=== PATIENT | female | born 1960 | race African-American/Black ===

== ENCOUNTER 2016-12-20 21:36 | Emergency (ER) | payer OTHER, MEDICAID ==
[~2016-12-20] VITALS: Ht 154.9 cm; Wt 70.3 kg
[~2016-12-20 21:36] MED LIST: ALPR0.5T; ASPI81CH43; HYDR-1421 OR; insulin 70/30 SC
[2016-12-20 23:35] LABS: Basophils # (auto) 0 uL; Basophils % (auto) 0.2 % (0.0-2.0); CONDITION AutoValidated; Eosinophils # (auto) 0 uL; Eosinophils % (auto) 0.3 % (0.0-7.0); Hematocrit 43.5 % (36.0-46.0); Hemoglobin 14.4 g/dL (12.2-16.2); Lymphocytes # (auto) 1.3 uL; Lymphocytes % (auto) 12.7 % (10.0-50.0); Mean Corpuscular Hemoglobin 27.8 pg (28.0-32.0); Mean Corpuscular Volume 84.3 fL (80.0-100.0); Mean Platelet Volume 9.3 fL (7.4-10.4); Monocytes # (auto) 0.3 uL; Monocytes % (auto) 3.3 % (0.0-12.0); Neutrophils # (auto) 8.7 uL; Neutrophils % (auto) 83.5 % (37.0-80.0); Platelet Count (auto) 254 10^3/uL (140-450); Red Cell Distribution Width 12.3 % (11.6-16.0); White Blood Cell 10.4 10^3/uL (4.4-10.8)
[2016-12-20 23:56] LABS: Albumin 3.7 g/dL (3.4-5.0); Anion Gap 11 (5-15); Aspartate Aminotransferase 20 U/L (15-37); BUN/Creatinine Ratio 13.6; Blood Urea Nitrogen 11 mg/dL (7-18); Carbon Dioxide 23 mmol/L (21-32); Chloride 106 mmol/L (98-107); GFR African American 94 mL/min; GFR Non-African American 77 mL/min; Glucose 341 mg/dL (74-106); Potassium 3.8 mmol/L (3.5-5.1); Sodium 140 mmol/L (136-145)
[2016-12-20 23:58] LABS: Alkaline Phosphatase 139 U/L (45-117); Bilirubin, Total 0.4 mg/dL (0.2-1.0); Total Protein 7.8 g/dL (6.4-8.2)
[2016-12-21] MEDS ORDERED: MECLIZINE HCL 25 MG TAB PO ONE (00:30)
[2016-12-21 01:49] LABS: B-Type Natriuretic Peptide 57.49 pg/mL (0-100); Temperature: 23.8 C (20.0-25.0)
[2016-12-21 03:03] VITALS: BP 99/41
== END 2016-12-21 04:52 | disposition home or self-care (01) ==
LOC: EDBD 21:36 → ER 21:49
DX: E11.9 Type 2 diabetes mellitus without complications (principal); E42 Marasmic kwashiorkor; I11.0 Hypertensive heart disease with heart failure; I50.9 Heart failure, unspecified; I25.10 Atherosclerotic heart disease of native coronary artery without angina pectoris; N83.209 Unspecified ovarian cyst, unspecified side; Z95.1 Presence of aortocoronary bypass graft
CPT/HCPCS: 36415; 71010; 80053; 83880; 84484; 85025; 85379; 93005; 94761; 99285; J8597

== ENCOUNTER 2017-11-20 18:17 | Emergency (ER) | payer OTHER, MEDICAID ==
[~2017-11-20] VITALS: Ht 157.5 cm; Wt 54.4 kg
[2017-11-20 19:44] LABS: Urine Bacteria FEW /hpf (None Seen); Urine Blood Negative /uL (Negative); Urine WBC <1 /hpf (0 - 5)
[2017-11-20 19:51] LABS: Basophils # (auto) 0 uL; Basophils % (auto) 0.6 % (0.0-2.0); Eosinophils # (auto) 0.1 uL; Eosinophils % (auto) 1.3 % (0.0-7.0); Hematocrit 42.8 % (36.0-46.0); Hemoglobin 14.4 g/dL (12.2-16.2); Lymphocytes # (auto) 2.3 uL; Lymphocytes % (auto) 34.3 % (10.0-50.0); Mean Corpuscular Hemoglobin 28.4 pg (28.0-32.0); Mean Corpuscular Hgb Conc. 33.7 g/dL (32.0-36.0); Mean Corpuscular Volume 84.2 fL (80.0-100.0); Monocytes # (auto) 0.5 uL; Monocytes % (auto) 7.9 % (0.0-12.0); Neutrophils # (auto) 3.8 uL; Neutrophils % (auto) 55.9 % (37.0-80.0); Nucleated Red Blood Cells % 0.1 %; Platelet Count (auto) 223 10^3/uL (140-450); Red Blood Cells 5.08 10^6/uL (4.0-5.20); Red Cell Distribution Width 12.6 % (11.8-14.3); White Blood Cell 6.7 10^3/uL (4.4-10.8)
[2017-11-20 19:57] LABS: Albumin 3.8 g/dL (3.4-5.0); BUN/Creatinine Ratio 19.7; Bilirubin, Total 0.2 mg/dL (0.2-1.0); Calcium 10.1 mg/dL (8.5-10.1); Total Protein 7.8 g/dL (6.4-8.2)
[2017-11-21] MEDS ORDERED: InsuLIN REG 1unit/0.01ml Soln (100units/ml) IV ONE (04:30)
[2017-11-21] MEDS ORDERED: SODIUM CHLORIDE 0.9% 1,000 ML IV ONE (04:30)
[2017-11-21 04:46] VITALS: BP 102/64
[2017-11-21] MEDS ORDERED: ONDANSETRON HCL 4 MG/2 ML VIAL IV ONE (05:15)
== END 2017-11-21 06:10 | disposition home or self-care (01) ==
LOC: ER 18:17
DX: K29.70 Gastritis, unspecified, without bleeding (principal); E11.9 Type 2 diabetes mellitus without complications; I11.0 Hypertensive heart disease with heart failure; I50.9 Heart failure, unspecified; N83.209 Unspecified ovarian cyst, unspecified side; Z86.73 Personal history of transient ischemic attack (TIA), and cerebral infarction without residual deficits; Z95.1 Presence of aortocoronary bypass graft; Z88.6 Allergy status to analgesic agent; Z88.1 Allergy status to other antibiotic agents; Z88.8 Allergy status to other drugs, medicaments and biological substances; Z79.4 Long term (current) use of insulin
CPT/HCPCS: 36415; 80053; 81001; 82962; 85025; 99284; J1815; J2405

== ENCOUNTER 2019-02-13 20:48 | Emergency (ER) | payer OTHER, MEDICAID ==
[~2019-02-13] VITALS: Ht 157.5 cm; Wt 77.1 kg
[2019-02-13 22:28] LABS: Urine Bacteria FEW /hpf (None Seen); Urine Blood TRACE /uL (Negative); Urine Mucus FEW (None Seen); Urine Specific Gravity 1.019 (1.001-1.035); Urine WBC 67 /hpf (0 - 5)
[2019-02-13 23:09] LABS: Basophils # (auto) 0 uL; Basophils % (auto) 0.4 % (0.0-2.0); Eosinophils # (auto) 0.1 uL; Eosinophils % (auto) 1.8 % (0.0-7.0); Hemoglobin 13.8 g/dL (12.2-16.2); Lymphocytes # (auto) 2.4 uL; Lymphocytes % (auto) 34.1 % (10.0-50.0); Mean Corpuscular Hemoglobin 28.3 pg (28.0-32.0); Mean Corpuscular Hgb Conc. 33.7 g/dL (32.0-36.0); Mean Corpuscular Volume 83.9 fL (80.0-100.0); Monocytes # (auto) 0.5 uL; Monocytes % (auto) 7.8 % (0.0-12.0); Neutrophils # (auto) 3.9 uL; Neutrophils % (auto) 55.9 % (37.0-80.0); Platelet Count (auto) 199 10^3/uL (140-450); Red Blood Cells 4.89 10^6/uL (4.0-5.20); Red Cell Distribution Width 12.6 % (11.8-14.3)
[2019-02-13 23:33] LABS: Albumin 3.6 g/dL (3.4-5.0); Calcium 9.2 mg/dL (8.5-10.1); Potassium 3.8 mmol/L (3.5-5.1)
[2019-02-13 23:37] LABS: BUN/Creatinine Ratio 22.2
[2019-02-13 23:39] LABS: Bilirubin, Total 0.3 mg/dL (0.2-1.0); Total Protein 7.2 g/dL (6.4-8.2)
[2019-02-14] MEDS ORDERED: cefTRIAXone 1GM/50ML D5W 50 ML IV ONE (07:45)
[2019-02-14 09:44] VITALS: BP 116/66
== END 2019-02-14 10:04 | disposition home or self-care (01) ==
LOC: ER 20:48
DX: N39.0 Urinary tract infection, site not specified (principal); E11.65 Type 2 diabetes mellitus with hyperglycemia; I25.10 Atherosclerotic heart disease of native coronary artery without angina pectoris; I11.0 Hypertensive heart disease with heart failure; I50.9 Heart failure, unspecified; Z95.1 Presence of aortocoronary bypass graft; Z79.82 Long term (current) use of aspirin; Z79.4 Long term (current) use of insulin; Z79.899 Other long term (current) drug therapy; Z88.1 Allergy status to other antibiotic agents; Z88.5 Allergy status to narcotic agent; Z88.8 Allergy status to other drugs, medicaments and biological substances
CPT/HCPCS: 36415; 80053; 81001; 82962; 85025; 96365; 99283; J0696

== ENCOUNTER 2019-04-10 09:07 | Emergency (ER) | payer OTHER, MEDICAID ==
[~2019-04-10] VITALS: Ht 160 cm; Wt 81.6 kg
[2019-04-10 09:54] LABS: Basophils # (auto) 0.1 uL; Basophils % (auto) 0.6 % (0.0-2.0); Eosinophils # (auto) 0.1 uL; Eosinophils % (auto) 0.8 % (0.0-7.0); Hematocrit 42.5 % (36.0-46.0); Hemoglobin 14.2 g/dL (12.2-16.2); Lymphocytes # (auto) 1.4 uL; Lymphocytes % (auto) 13.7 % (10.0-50.0); Mean Corpuscular Hemoglobin 28.7 pg (28.0-32.0); Mean Corpuscular Hgb Conc. 33.4 g/dL (32.0-36.0); Monocytes # (auto) 0.6 uL; Monocytes % (auto) 5.8 % (0.0-12.0); Neutrophils # (auto) 8.1 uL; Neutrophils % (auto) 79.1 % (37.0-80.0); Nucleated Red Blood Cells % 0.1 %; Platelet Count (auto) 205 10^3/uL (140-450); Red Blood Cells 4.94 10^6/uL (4.0-5.20); White Blood Cell 10.3 10^3/uL (4.4-10.8)
[2019-04-10 10:21] LABS: Alanine Aminotransferase 25 U/L (13-56); Alkaline Phosphatase 131 U/L (45-117); Anion Gap 8 (5-15); Aspartate Aminotransferase 24 U/L (15-37); BUN/Creatinine Ratio 19.5; Blood Urea Nitrogen 17 mg/dL (7-18); Carbon Dioxide 20 mmol/L (21-32); Chloride 109 mmol/L (98-107); GFR African American 85 mL/min; GFR Non-African American 71 mL/min; Glucose 396 mg/dL (74-106); Potassium 4.4 mmol/L (3.5-5.1); Sodium 137 mmol/L (136-145)
[2019-04-10 10:22] LABS: Albumin 3.4 g/dL (3.4-5.0); Bilirubin, Total 0.6 mg/dL (0.2-1.0); Calcium 9.3 mg/dL (8.5-10.1); Total Protein 7.6 g/dL (6.4-8.2)
[2019-04-10] MEDS ORDERED: SODIUM CHLORIDE 0.9% 1,000 ML IVB ONE (12:44)
[2019-04-10 14:52] LABS: Urine Bacteria NONE SEEN /hpf (None Seen); Urine Blood 1+ /uL (Negative); Urine Specific Gravity 1.027 (1.001-1.035); Urine WBC 5 /hpf (0 - 5)
[2019-04-10] MEDS ORDERED: INSULIN LISPRO (HUMAN) 100 UNITS/ML ML SC ONE (16:30)
[2019-04-10 16:58] VITALS: BP 112/62
== END 2019-04-10 17:12 | disposition home or self-care (01) ==
LOC: EDBD 09:07 → ER 09:07
DX: R07.89 Other chest pain (principal); E11.65 Type 2 diabetes mellitus with hyperglycemia; F41.9 Anxiety disorder, unspecified; E11.9 Type 2 diabetes mellitus without complications; I11.0 Hypertensive heart disease with heart failure; I50.9 Heart failure, unspecified; H81.10 Benign paroxysmal vertigo, unspecified ear; Z86.73 Personal history of transient ischemic attack (TIA), and cerebral infarction without residual deficits; Z95.1 Presence of aortocoronary bypass graft; Z88.1 Allergy status to other antibiotic agents; Z88.6 Allergy status to analgesic agent; Z90.49 Acquired absence of other specified parts of digestive tract
CPT/HCPCS: 36415; 71045; 80053; 81001; 82962; 83735; 84443; 84484; 85025; 93005; 96360; 96372; 99284; J1815

== ENCOUNTER 2023-02-11 01:18 | Inpatient (IN) | payer OTHER, MEDICAID ==
[~2023-02-11] VITALS: Ht 162.6 cm; Wt 62.4 kg
[2023-02-11] MEDS ORDERED: ACCU-CHEK COMFORT CURVE STRIP VI ONE (01:45)
[2023-02-11 02:00] VITALS: PULSE 102; PULSE 109; RESP 20; O2SAT 99
[2023-02-11] MEDS ORDERED: InsuLIN REG 1unit/0.01ml Soln (100units/ml) IV ONE (02:00)
[2023-02-11] MEDS ORDERED: SODIUM CHLORIDE 0.9% 1,000 ML IV ONE ×3 (02:00→11:15)
[2023-02-11 02:06] LABS: Basophils # (auto) 0 10 ^3/uL (0-0.2); Basophils % (auto) 0.4 % (0.0-2.0); Eosinophils # (auto) 0 10 ^3/uL (0-0.8); Eosinophils % (auto) 0.5 % (0.0-7.0); Hemoglobin 13.6 g/dL (12.2-16.2); Lymphocytes # (auto) 1.6 10 ^3/uL (0.4-5.4); Lymphocytes % (auto) 20.5 % (10.0-50.0); Mean Corpuscular Hemoglobin 28.2 pg (28.0-32.0); Mean Corpuscular Hgb Conc. 33.1 g/dL (32.0-36.0); Mean Corpuscular Volume 85.3 fL (80.0-100.0); Monocytes # (auto) 0.5 10 ^3/uL (0-1.3); Monocytes % (auto) 6.2 % (0.0-12.0); Neutrophils # (auto) 5.8 10 ^3/uL (1.6-8.6); Neutrophils % (auto) 72.4 % (37.0-80.0); Red Blood Cells 4.81 10^6/uL (4.0-5.20); Red Cell Distribution Width 12.4 % (11.8-14.3); White Blood Cell 7.9 10^3/uL (4.4-10.8)
[2023-02-11] MEDS ORDERED: ONDANSETRON ODT 4 MG TAB PO ONE (02:15)
[2023-02-11 02:23] LABS: Albumin 3.5 g/dL (3.4-5.0); Calcium 9.8 mg/dL (8.5-10.1); Potassium 3.7 mmol/L (3.5-5.1)
[2023-02-11 02:27] LABS: Bilirubin, Total 0.4 mg/dL (0.2-1.0); Total Protein 7.9 g/dL (6.4-8.2)
[2023-02-11 02:55] LABS: BUN/Creatinine Ratio 23.5 (10.0-20.0)
[2023-02-11 02:55] LABS: COVID19 ANTIGEN SOFIA FIA NEGATIVE (NEGATIVE)
[2023-02-11 04:24] LABS: Urine Bacteria NONE SEEN /hpf (None Seen); Urine Blood Negative /uL (Negative); Urine Clarity HAZY (Clear); Urine Color Colorless (Yellow); Urine Protein, UAD 1+ (Negative); Urine Specific Gravity 1.023 (1.001-1.035); Urine Urobilinogen Normal (Negative); Urine WBC 122 /hpf (0 - 5); Urine WBC Clumps PRESENT /hpf (None Seen); Urine pH 5.5 (5.0-8.0)
[2023-02-11 04:28] LABS: Alcohol, Urine < 3.0 mg/dL (0-10); Amphetamine Screen, Urine NEGATIVE (NEGATIVE); Barbiturate Scree,Urine NEGATIVE (NEGATIVE); Benzodiazephine Screen, Urine NEGATIVE (NEGATIVE); Cannabinoid Screen, Urine NEGATIVE (NEGATIVE); Cocaine Screen, Urine NEGATIVE (NEGATIVE); Opiate Scree,Urine NEGATIVE (NEGATIVE); Phencyclidine Screen, Urine NEGATIVE (NEGATIVE)
[2023-02-11] MEDS ORDERED: PIPERACILLIN-TAZOB 3.375GM 100 ML IV ONE (05:15)
[2023-02-11] MEDS ORDERED: ACETAMINOPHEN 325 MG TAB PO PRN (05:45)
[2023-02-11] MEDS ORDERED: DEXTROSE (50%) 50ML SYRG IV PRN ×2 (05:45→11:15)
[2023-02-11] MEDS ORDERED: ALBUMIN 25% 100 ML IV ONE (05:45)
[2023-02-11] MEDS ORDERED: ONDANSETRON HCL 4 MG/2 ML VIAL IV PRN (05:45)
[2023-02-11] MEDS: MIDODRINE HCL 10 MG TAB PO SCH ×2 (06:37→23:44)
[2023-02-11] MEDS ORDERED: InsuLIN REG 1unit/0.01ml Soln (100units/ml) SC SCH (08:00)
[2023-02-11] MEDS ORDERED: ACCU-CHEK COMFORT CURVE STRIP VI SCH (08:00)
[2023-02-11 08:50] VITALS: PULSE 101; RESP 20; O2SAT 99
[2023-02-11] MEDS: APIXABAN 5 MG TAB PO SCH ×2 (09:54→23:44)
[2023-02-11] MEDS: PANTOPRAZOLE 40 MG TAB PO SCH (09:54)
[2023-02-11] MEDS: cefTRIAXone 1GM/50ML D5W 50 ML IV SCH (09:54)
[2023-02-11] MEDS ORDERED: ENOXAPARIN SOD 40 MG/0.4 ML SYRINGE SC SCH (10:00)
[2023-02-11] MEDS: ACCU-CHEK COMFORT CURVE STRIP VI SCH ×4 (12:39→23:45)
[2023-02-11] MEDS: InsuLIN REG 1unit/0.01ml Soln (100units/ml) SC SCH ×3 (12:42→20:40)
[2023-02-11 16:06] LABS: Cholesterol 164 mg/dL (< 200)
[2023-02-11 16:09] LABS: HDL Cholesterol 37 mg/dL (40-59); LDL Cholesterol 110 mg/dL (< 100); Triglycerides 237 mg/dL (< 150)
[2023-02-11 16:51] LABS: Free T3 2.53 pg/mL (2.3-4.2); Free T4 (Free Thyroxine) 1.3 ng/dL (0.89-1.76)
[2023-02-11 21:58] VITALS: PULSE 84; RESP 18; O2SAT 98
[2023-02-11 22:00] VITALS: BP 90/48; PULSE 84; RESP 18; TEMP 98.1; O2SAT 98
[2023-02-11] MEDS ORDERED: MIDO10TA10 PO (22:52)
[2023-02-11] MEDS ORDERED: ATOR20TA50 PO (22:52)
[2023-02-11] MEDS ORDERED: MAX5OPS EACHEYE (22:52)
[2023-02-11] MEDS ORDERED: APIX5TAB PO (22:52)
[2023-02-11] MEDS ORDERED: INSLANTI SC (22:52)
[2023-02-11] MEDS: ATORVASTATIN 20 MG TAB PO SCH (23:45)
[2023-02-12] VITALS (7 sets, daily range): BP systolic 90–113; BP diastolic 44–70; PULSE 71–90; RESP 16–20; TEMP 97.5–99.1; O2SAT 98–100
[2023-02-12] MEDS: InsuLIN REG 1unit/0.01ml Soln (100units/ml) SC SCH ×6 (00:29→21:55)
[2023-02-12] MEDS: ACCU-CHEK COMFORT CURVE STRIP VI SCH ×5 (04:46→20:56)
[2023-02-12 06:43] LABS: Basophils # (auto) 0 10 ^3/uL (0-0.2); Basophils % (auto) 0.5 % (0.0-2.0); Eosinophils # (auto) 0.1 10 ^3/uL (0-0.8); Eosinophils % (auto) 1.5 % (0.0-7.0); Hematocrit 37.5 % (36.0-46.0); Hemoglobin 12.3 g/dL (12.2-16.2); Lymphocytes % (auto) 32.1 % (10.0-50.0); Mean Corpuscular Hemoglobin 27.5 pg (28.0-32.0); Mean Corpuscular Hgb Conc. 32.8 g/dL (32.0-36.0); Mean Corpuscular Volume 83.9 fL (80.0-100.0); Monocytes # (auto) 0.6 10 ^3/uL (0-1.3); Monocytes % (auto) 9.5 % (0.0-12.0); Neutrophils # (auto) 3.5 10 ^3/uL (1.6-8.6); Neutrophils % (auto) 56.4 % (37.0-80.0); Red Blood Cells 4.47 10^6/uL (4.0-5.20); Red Cell Distribution Width 12.4 % (11.8-14.3); White Blood Cell 6.2 10^3/uL (4.4-10.8)
[2023-02-12 06:55] LABS: BUN/Creatinine Ratio 21.6 (10.0-20.0); Calcium 9.1 mg/dL (8.5-10.1)
[2023-02-12] MEDS: cefTRIAXone 1GM/50ML D5W 50 ML IV SCH (10:02)
[2023-02-12] MEDS: APIXABAN 5 MG TAB PO SCH ×2 (10:03→21:06)
[2023-02-12] MEDS: PANTOPRAZOLE 40 MG TAB PO SCH (10:03)
[2023-02-12] MEDS: MIDODRINE HCL 10 MG TAB PO SCH ×2 (10:03→21:06)
[2023-02-12] MEDS ORDERED: POTASSIUM EFFERVESENT TAB 25 MEQ PO ONE (14:45)
[2023-02-12] MEDS: ATORVASTATIN 20 MG TAB PO SCH (21:06)
[2023-02-13] VITALS (7 sets, daily range): BP systolic 78–98; BP diastolic 40–65; PULSE 66–110; RESP 16–18; TEMP 97.9–99; O2SAT 93–98
[2023-02-13] MEDS: ACCU-CHEK COMFORT CURVE STRIP VI SCH ×7 (00:27→23:36)
[2023-02-13] MEDS: InsuLIN REG 1unit/0.01ml Soln (100units/ml) SC SCH ×7 (06:08→23:53)
[2023-02-13] MEDS: cefTRIAXone 1GM/50ML D5W 50 ML IV SCH (08:29)
[2023-02-13] MEDS: PANTOPRAZOLE 40 MG TAB PO SCH (09:50)
[2023-02-13] MEDS: MIDODRINE HCL 10 MG TAB PO SCH ×2 (09:50→21:17)
[2023-02-13] MEDS: APIXABAN 5 MG TAB PO SCH ×2 (09:50→21:16)
[2023-02-13] MEDS ORDERED: INSULIN LANTUS (GLARGINE) 1 /0.01ml (100units/ml) SC ONE (10:30)
[2023-02-13] MEDS: INSULIN LANTUS (GLARGINE) 1 /0.01ml (100units/ml) SC SCH ×2 (10:45→21:29)
[2023-02-13] MEDS: ATORVASTATIN 20 MG TAB PO SCH (21:17)
[2023-02-13] MEDS ORDERED: INSULIN LANTUS (GLARGINE) 1 /0.01ml (100units/ml) SC SCH (22:00)
[2023-02-14] VITALS (7 sets, daily range): BP systolic 72–97; BP diastolic 38–56; PULSE 70–110; RESP 15–17; TEMP 36.7; O2SAT 97–99
[2023-02-14] MEDS: InsuLIN REG 1unit/0.01ml Soln (100units/ml) SC SCH ×3 (04:00→12:34)
[2023-02-14] MEDS: ACCU-CHEK COMFORT CURVE STRIP VI SCH ×3 (04:10→12:34)
[2023-02-14] MEDS ORDERED: MIDODRINE HCL 10 MG TAB PO SCH (06:00)
[2023-02-14] MEDS: cefTRIAXone 1GM/50ML D5W 50 ML IV SCH (08:25)
[2023-02-14] MEDS ORDERED: CEPH500C PO (09:19)
[2023-02-14] MEDS ORDERED: INSLANTI SC (09:19)
[2023-02-14] MEDS: APIXABAN 5 MG TAB PO SCH (10:00)
[2023-02-14] MEDS: PANTOPRAZOLE 40 MG TAB PO SCH (10:02)
== END 2023-02-14 14:00 | disposition home or self-care (01) | DRG 871 ==
LOC: EDBD 01:18 → ER 01:20 → OVERFLOW 05:45 → WEST WING 20:52
PROVIDERS: ADMIT Family Medicine; ATTEND Family Medicine
DX: A41.9 Sepsis, unspecified organism (principal); E11.10 Type 2 diabetes mellitus with ketoacidosis without coma; R65.21 Severe sepsis with septic shock; N39.0 Urinary tract infection, site not specified; E86.0 Dehydration; I95.9 Hypotension, unspecified; I50.9 Heart failure, unspecified; E66.9 Obesity, unspecified; E78.00 Pure hypercholesterolemia, unspecified; E87.5 Hyperkalemia; I11.0 Hypertensive heart disease with heart failure; I48.91 Unspecified atrial fibrillation; F32.A Depression, unspecified; F41.9 Anxiety disorder, unspecified; I25.10 Atherosclerotic heart disease of native coronary artery without angina pectoris; E11.40 Type 2 diabetes mellitus with diabetic neuropathy, unspecified; E11.21 Type 2 diabetes mellitus with diabetic nephropathy; E05.90 Thyrotoxicosis, unspecified without thyrotoxic crisis or storm; R79.89 Other specified abnormal findings of blood chemistry; I95.89 Other hypotension; Z20.822 Contact with and (suspected) exposure to COVID-19; Z79.01 Long term (current) use of anticoagulants; Z82.49 Family history of ischemic heart disease and other diseases of the circulatory system; Z83.3 Family history of diabetes mellitus; Z86.718 Personal history of other venous thrombosis and embolism; Z95.1 Presence of aortocoronary bypass graft; Z88.8 Allergy status to other drugs, medicaments and biological substances; Z88.1 Allergy status to other antibiotic agents; Z88.5 Allergy status to narcotic agent; Z90.49 Acquired absence of other specified parts of digestive tract
CPT/HCPCS: 36415; 71045; 80048; 80053; 80061; 80307; 81001; 82533; 82962; 83036; 83880; 84439; 84443; 84481; 84484; 85025; 87040; 87086; 87426; 93005; 93306; 96361; 96365; 96367; 96372; 96375; G0378; J0696; J1815; J2543; P9047; Q0162

== ENCOUNTER 2023-06-09 16:31 | Inpatient (IN) | payer OTHER, MEDICAID ==
[~2023-06-09] VITALS: Ht 157.5 cm; Wt 59.1 kg
[~2023-06-09 16:31] MED LIST changes: -ALPR0.5T; +APIX5TAB PO; -ASPI81CH43; +ATOR20TA50 PO; +CEPH500C PO; -HYDR-1421 OR; +INSLANTI SC; +MAX5OPS EACHEYE; +MIDO10TA10 PO; -insulin 70/30 SC
[2023-06-09] MEDS ORDERED: SODIUM CHLORIDE 0.9% 1,000 ML IV ONE (18:00)
[2023-06-09 18:35] LABS: Basophils # (auto) 0.1 10 ^3/uL (0-0.2); Basophils % (auto) 0.3 % (0.0-2.0); Eosinophils # (auto) 0 10 ^3/uL (0-0.8); Eosinophils % (auto) 0.1 % (0.0-7.0); Hematocrit 39.1 % (36.0-46.0); Hemoglobin 12.7 g/dL (12.2-16.2); Lymphocytes # (auto) 0.8 10 ^3/uL (0.4-5.4); Lymphocytes % (auto) 4.1 % (10.0-50.0); Mean Corpuscular Hgb Conc. 32.4 g/dL (32.0-36.0); Mean Corpuscular Volume 83.4 fL (80.0-100.0); Monocytes # (auto) 1.7 10 ^3/uL (0-1.3); Monocytes % (auto) 8.7 % (0.0-12.0); Neutrophils # (auto) 17.3 10 ^3/uL (1.6-8.6); Neutrophils % (auto) 86.8 % (37.0-80.0); Red Blood Cells 4.69 10^6/uL (4.0-5.20); Red Cell Distribution Width 12.2 % (11.8-14.3); White Blood Cell 19.9 10^3/uL (4.4-10.8)
[2023-06-09 18:54] LABS: INR 1.09 (0.9-1.15); Partial Thromboplastin Time 28.2 SEC (24.5-34.5); Prothrombin Time 11.4 sec (9.3-11.8)
[2023-06-09 19:08] LABS: Alanine Aminotransferase 13 U/L (7-40); Albumin 3.8 g/dL (3.2-4.8); Alkaline Phosphatase 134 U/L (46-116); Anion Gap 11 (5-15); Aspartate Aminotransferase 19 U/L (13-40); BUN/Creatinine Ratio 19.4 (10.0-20.0); Bilirubin, Total 0.4 mg/dL (0.2-1.0); Blood Urea Nitrogen 27 mg/dL (9-23); Calcium 9.3 mg/dL (8.7-10.4); Carbon Dioxide 21 mmol/L (20-30); Chloride 96 mmol/L (98-107); Potassium 4.7 mmol/L (3.5-5.1); Sodium 128 mmol/L (136-145); Total Protein 6.8 g/dL (5.7-8.2)
[2023-06-09 19:15] LABS: Glucose 635 mg/dL (74-106)
[2023-06-09] MEDS ORDERED: cefTRIAXone 1GM/50ML D5W 50 ML IV ONE (20:45)
[2023-06-09] MEDS ORDERED: DEXTROSE (50%) 50ML SYRG IV PRN (20:45)
[2023-06-09] MEDS ORDERED: NITROGLYCERIN 0.4 MG SL TAB SL PRN (20:45)
[2023-06-09] MEDS ORDERED: TEMAZEPAM 15 MG CAP PO PRN (20:45)
[2023-06-09] MEDS ORDERED: ONDANSETRON HCL 4 MG/2 ML VIAL IV PRN (20:45)
[2023-06-09] MEDS ORDERED: ALBUMIN 5% 250 ML IV ONE (20:45)
[2023-06-09 21:00] VITALS: PULSE 107; RESP 14; O2SAT 99
[2023-06-09] MEDS ORDERED: InsuLIN REG 1unit/0.01ml Soln (100units/ml) IV ONE (21:00)
[2023-06-09] MEDS: MIDODRINE HCL 10 MG TAB PO SCH (21:28)
[2023-06-09] MEDS: SODIUM CHLORIDE 0.9% 1,000 ML IV SCH (21:56)
[2023-06-09] MEDS: ATORVASTATIN 20 MG TAB PO SCH (22:12)
[2023-06-09] MEDS: APIXABAN 5 MG TAB PO SCH (22:12)
[2023-06-10 01:27] LABS: COVID19 ANTIGEN SOFIA FIA NEGATIVE (NEGATIVE); Rapid Influenza A Negative (Negative); Rapid Influenza B Negative (Negative)
[2023-06-10] MEDS: ACCU-CHEK COMFORT CURVE STRIP VI SCH ×7 (01:28→23:05)
[2023-06-10] MEDS: InsuLIN REG 1unit/0.01ml Soln (100units/ml) SC SCH ×8 (01:28→23:05)
[2023-06-10 02:32] VITALS: PULSE 94; RESP 19; O2SAT 95
[2023-06-10 03:36] LABS: Urine Bacteria NONE SEEN /hpf (None Seen); Urine Blood 2+ /uL (Negative); Urine Clarity CLOUDY (Clear); Urine Color Yellow (Yellow); Urine Protein, UAD 1+ (Negative); Urine Urobilinogen Normal (Negative); Urine WBC 3850 /hpf (0 - 5); Urine WBC Clumps PRESENT /hpf (None Seen); Urine pH 5.5 (5.0-8.0)
[2023-06-10 03:38] LABS: Urine Specific Gravity 1.025 (1.001-1.035)
[2023-06-10] MEDS ORDERED: SODIUM CHLORIDE 0.9% 1,000 ML IV ONE ×2 (04:30→15:00)
[2023-06-10 06:15] LABS: Albumin 3.9 g/dL (3.2-4.8); Alkaline Phosphatase 114 U/L (46-116); Calcium 9.4 mg/dL (8.7-10.4)
[2023-06-10 06:16] LABS: Anion Gap 8 (5-15); Aspartate Aminotransferase < 8 U/L (13-40); Bilirubin, Total 0.3 mg/dL (0.2-1.0); Blood Urea Nitrogen 17 mg/dL (9-23); Carbon Dioxide 25 mmol/L (20-30); Chloride 103 mmol/L (98-107); Glucose 216 mg/dL (74-106); Potassium 3.4 mmol/L (3.5-5.1); Total Protein 6.9 g/dL (5.7-8.2)
[2023-06-10] MEDS: MIDODRINE HCL 10 MG TAB PO SCH ×3 (06:25→17:50)
[2023-06-10 06:27] LABS: Alanine Aminotransferase < 9 U/L (7-40); Sodium 136 mmol/L (136-145)
[2023-06-10 07:07] LABS: Basophils # (auto) 0 10 ^3/uL (0-0.2); Basophils % (auto) 0.2 % (0.0-2.0); Eosinophils # (auto) 0 10 ^3/uL (0-0.8); Eosinophils % (auto) 0.1 % (0.0-7.0); Hematocrit 35.5 % (36.0-46.0); Hemoglobin 11.7 g/dL (12.2-16.2); Lymphocytes # (auto) 0.6 10 ^3/uL (0.4-5.4); Lymphocytes % (auto) 3.2 % (10.0-50.0); Mean Corpuscular Hemoglobin 27.3 pg (28.0-32.0); Mean Corpuscular Hgb Conc. 32.9 g/dL (32.0-36.0); Mean Corpuscular Volume 82.9 fL (80.0-100.0); Monocytes # (auto) 1.7 10 ^3/uL (0-1.3); Monocytes % (auto) 8.7 % (0.0-12.0); Neutrophils # (auto) 16.6 10 ^3/uL (1.6-8.6); Neutrophils % (auto) 87.8 % (37.0-80.0); Red Blood Cells 4.28 10^6/uL (4.0-5.20); Red Cell Distribution Width 12.2 % (11.8-14.3); White Blood Cell 18.9 10^3/uL (4.4-10.8)
[2023-06-10 07:55] VITALS: PULSE 99; RESP 15; O2SAT 94
[2023-06-10] MEDS: SODIUM CHLORIDE 0.9% 1,000 ML IV SCH (08:59)
[2023-06-10] MEDS: cefTRIAXone 1GM/50ML D5W 50 ML IV SCH (09:00)
[2023-06-10] MEDS: APIXABAN 5 MG TAB PO SCH ×2 (10:19→23:05)
[2023-06-10] MEDS: ACETAMINOPHEN 325 MG TAB PO PRN ×2 (10:29→17:49)
[2023-06-10] MEDS ORDERED: SOD CHL 0.45% 1,000 ML IV SCH (10:45)
[2023-06-10] MEDS ORDERED: DAPA1TAB4 PO (14:17)
[2023-06-10] MEDS ORDERED: SUMA50TA16 PO (14:18)
[2023-06-10] MEDS ORDERED: DICL1GEL59 EXT (14:19)
[2023-06-10] MEDS ORDERED: NAP500T PO (14:20)
[2023-06-10] MEDS ORDERED: GLIM4TAB42 PO (14:21)
[2023-06-10] MEDS ORDERED: SODIUM CHLORIDE 0.9% 500 ML IV ONE (19:30)
[2023-06-10 20:00] VITALS: PULSE 83; RESP 21; O2SAT 93
[2023-06-10] MEDS: ATORVASTATIN 20 MG TAB PO SCH (23:04)
[2023-06-11] VITALS (8 sets, daily range): BP systolic 92–116; BP diastolic 41–62; PULSE 89–115; RESP 16–20; TEMP 98–100.4; O2SAT 95–100
[2023-06-11] MEDS: ACCU-CHEK COMFORT CURVE STRIP VI SCH ×5 (04:41→20:54)
[2023-06-11] MEDS: InsuLIN REG 1unit/0.01ml Soln (100units/ml) SC SCH ×5 (04:41→20:57)
[2023-06-11] MEDS: MIDODRINE HCL 10 MG TAB PO SCH ×3 (06:06→17:29)
[2023-06-11] MEDS: ACETAMINOPHEN 325 MG TAB PO PRN ×2 (06:18→12:10)
[2023-06-11] MEDS: APIXABAN 5 MG TAB PO SCH ×2 (09:23→20:58)
[2023-06-11] MEDS: cefTRIAXone 1GM/50ML D5W 50 ML IV SCH ×2 (09:23→14:16)
[2023-06-11 12:02] LABS: Basophils # (auto) 0 10 ^3/uL (0-0.2); Basophils % (auto) 0.2 % (0.0-2.0); Eosinophils # (auto) 0.1 10 ^3/uL (0-0.8); Eosinophils % (auto) 0.3 % (0.0-7.0); Hematocrit 36.5 % (36.0-46.0); Hemoglobin 11.9 g/dL (12.2-16.2); Lymphocytes # (auto) 1.6 10 ^3/uL (0.4-5.4); Mean Corpuscular Hemoglobin 27.2 pg (28.0-32.0); Mean Corpuscular Hgb Conc. 32.5 g/dL (32.0-36.0); Mean Corpuscular Volume 83.9 fL (80.0-100.0); Monocytes # (auto) 1.7 10 ^3/uL (0-1.3); Monocytes % (auto) 8.6 % (0.0-12.0); Neutrophils # (auto) 16.1 10 ^3/uL (1.6-8.6); Neutrophils % (auto) 82.9 % (37.0-80.0); Nucleated Red Blood Cells % 0.1 %; Red Blood Cells 4.36 10^6/uL (4.0-5.20); Red Cell Distribution Width 12.3 % (11.8-14.3); White Blood Cell 19.5 10^3/uL (4.4-10.8)
[2023-06-11 12:23] LABS: Alanine Aminotransferase 14 U/L (7-40); Albumin 3.3 g/dL (3.2-4.8); Alkaline Phosphatase 117 U/L (46-116); Aspartate Aminotransferase 14 U/L (13-40); Chloride 105 mmol/L (98-107); Glucose 192 mg/dL (74-106); Sodium 135 mmol/L (136-145)
[2023-06-11 12:28] LABS: Calcium 8.8 mg/dL (8.7-10.4); Carbon Dioxide 21 mmol/L (20-30)
[2023-06-11 12:35] LABS: Anion Gap 9 (5-15); BUN/Creatinine Ratio 10.4 (10.0-20.0); Blood Urea Nitrogen 5 mg/dL (9-23); Total Protein 6.1 g/dL (5.7-8.2)
[2023-06-11 12:48] LABS: Bilirubin, Total 0.3 mg/dL (0.2-1.0)
[2023-06-11] MEDS ORDERED: POTASSIUM EFFERVESENT TAB 25 MEQ PO ONE (18:15)
[2023-06-11] MEDS: ATORVASTATIN 20 MG TAB PO SCH (20:58)
[2023-06-12] VITALS (7 sets, daily range): BP systolic 91–113; BP diastolic 38–55; PULSE 73–110; RESP 16–17; TEMP 96.8–100.6; O2SAT 96–98
[2023-06-12] MEDS: ACCU-CHEK COMFORT CURVE STRIP VI SCH ×7 (00:53→23:59)
[2023-06-12] MEDS: InsuLIN REG 1unit/0.01ml Soln (100units/ml) SC SCH ×6 (00:53→21:37)
[2023-06-12] MEDS: ACETAMINOPHEN 325 MG TAB PO PRN ×4 (00:53→22:06)
[2023-06-12] MEDS: MIDODRINE HCL 10 MG TAB PO SCH ×3 (05:16→17:58)
[2023-06-12] MEDS: cefTRIAXone 1GM/50ML D5W 50 ML IV SCH (08:40)
[2023-06-12] MEDS: APIXABAN 5 MG TAB PO SCH ×2 (08:41→22:06)
[2023-06-12] MEDS ORDERED: AMPICILLIN INJ 1 GM in SODIUM CHL 0.9% 100 ML IV SCH ×2 (12:00→20:00)
[2023-06-12] MEDS: AMPICILLIN INJ 1 GM in SODIUM CHL 0.9% 100 ML IV SCH ×2 (14:14→20:30)
[2023-06-12] MEDS: ATORVASTATIN 20 MG TAB PO SCH (22:05)
[2023-06-13] MEDS: InsuLIN REG 1unit/0.01ml Soln (100units/ml) SC SCH ×6 (00:03→19:56)
[2023-06-13] MEDS: AMPICILLIN INJ 1 GM in SODIUM CHL 0.9% 100 ML IV SCH ×4 (02:27→19:53)
[2023-06-13 04:42] VITALS: BP 99/49; PULSE 82; RESP 14; TEMP 99.8; O2SAT 97
[2023-06-13] MEDS: MIDODRINE HCL 10 MG TAB PO SCH ×3 (05:02→17:14)
[2023-06-13] MEDS: ACCU-CHEK COMFORT CURVE STRIP VI SCH ×5 (05:02→19:53)
[2023-06-13 07:29] LABS: Basophils # (auto) 0.1 10 ^3/uL (0-0.2); Basophils % (auto) 0.5 % (0.0-2.0); Eosinophils # (auto) 0.1 10 ^3/uL (0-0.8); Eosinophils % (auto) 0.6 % (0.0-7.0); Hematocrit 38.8 % (36.0-46.0); Hemoglobin 12.7 g/dL (12.2-16.2); Lymphocytes # (auto) 1.3 10 ^3/uL (0.4-5.4); Lymphocytes % (auto) 8.3 % (10.0-50.0); Mean Corpuscular Hemoglobin 27.8 pg (28.0-32.0); Mean Corpuscular Hgb Conc. 32.7 g/dL (32.0-36.0); Monocytes # (auto) 1.9 10 ^3/uL (0-1.3); Monocytes % (auto) 11.7 % (0.0-12.0); Neutrophils # (auto) 12.7 10 ^3/uL (1.6-8.6); Neutrophils % (auto) 78.9 % (37.0-80.0); Nucleated Red Blood Cells % 0.1 %; Red Blood Cells 4.57 10^6/uL (4.0-5.20); Red Cell Distribution Width 12.3 % (11.8-14.3)
[2023-06-13 08:00] VITALS: PULSE 103; PULSE 94; RESP 18; O2SAT 99
[2023-06-13] MEDS: APIXABAN 5 MG TAB PO SCH (08:19)
[2023-06-13 09:00] VITALS: BP 108/49; PULSE 94; RESP 18; TEMP 99; O2SAT 99
[2023-06-13 13:00] VITALS: BP 103/46; PULSE 108; RESP 16; TEMP 98.5; O2SAT 97
[2023-06-13 17:00] VITALS: BP 109/42; PULSE 88; RESP 18; TEMP 99.4; O2SAT 97
== END 2023-06-13 21:20 | disposition home health service (06) | DRG 871 ==
LOC: ER 16:31 → TELE 20:45 → TELE-WESTW 06-10 21:56
PROVIDERS: ADMIT Nurse Practitioner; ATTEND Family Medicine
PROC: 05HA33Z Insertion of Infusion Device into Left Brachial Vein, Percutaneous Approach (ICD-10-PCS; principal; 2023-06-12)
PROC: B54NZZA Ultrasonography of Left Upper Extremity Veins, Guidance (ICD-10-PCS; 2023-06-12)
DX: A40.1 Sepsis due to streptococcus, group B (principal); E11.10 Type 2 diabetes mellitus with ketoacidosis without coma; R65.21 Severe sepsis with septic shock; N39.0 Urinary tract infection, site not specified; E87.1 Hypo-osmolality and hyponatremia; N17.9 Acute kidney failure, unspecified; I48.91 Unspecified atrial fibrillation; E78.00 Pure hypercholesterolemia, unspecified; I11.0 Hypertensive heart disease with heart failure; I25.10 Atherosclerotic heart disease of native coronary artery without angina pectoris; I50.9 Heart failure, unspecified; Z79.01 Long term (current) use of anticoagulants; Z79.4 Long term (current) use of insulin; Z87.440 Personal history of urinary (tract) infections; Z91.148 Patient's other noncompliance with medication regimen for other reason; Z95.1 Presence of aortocoronary bypass graft; Z95.2 Presence of prosthetic heart valve; Z88.6 Allergy status to analgesic agent; Z88.5 Allergy status to narcotic agent; Z88.8 Allergy status to other drugs, medicaments and biological substances
CPT/HCPCS: 36415; 71045; 80053; 81001; 82962; 83605; 84484; 85025; 85610; 85730; 87040; 87081; 87086; 87426; 87804; 93005; 99291; G0378; J0696; J1815

== ENCOUNTER 2023-10-29 15:42 | Inpatient (IN) | payer OTHER, MEDICAID ==
[~2023-10-29] VITALS: Ht 157.5 cm; Wt 52.0 kg
[~2023-10-29 15:42] MED LIST changes: -CEPH500C PO; +DAPA1TAB4 PO; +DICL1GEL59 EXT; +GLIM4TAB42 PO; -MAX5OPS EACHEYE; +NAP500T PO; +SUMA50TA16 PO
[2023-10-29 16:25] VITALS: PULSE 103; RESP 12; O2SAT 100
[2023-10-29 17:30] LABS: Urine Bacteria None Seen /hpf (None Seen)
[2023-10-29 17:33] LABS: Basophils # (auto) 0 10 ^3/uL (0-0.2); Basophils % (auto) 0.3 % (0.0-2.0); Eosinophils # (auto) 0.2 10 ^3/uL (0-0.8); Lymphocytes # (auto) 1.4 10 ^3/uL (0.4-5.4); Red Cell Distribution Width 13.2 % (11.8-14.3); White Blood Cell 6.5 10^3/uL (4.4-10.8)
[2023-10-29 17:37] LABS: Eosinophils % (auto) 2.6 % (0.0-7.0); Hematocrit 35.7 % (36.0-46.0); Hemoglobin 11.6 g/dL (12.2-16.2); Lymphocytes % (auto) 21.7 % (10.0-50.0); Mean Corpuscular Hemoglobin 27.2 pg (28.0-32.0); Mean Corpuscular Hgb Conc. 32.4 g/dL (32.0-36.0); Mean Corpuscular Volume 83.8 fL (80.0-100.0); Monocytes # (auto) 0.9 10 ^3/uL (0-1.3); Monocytes % (auto) 14.5 % (0.0-12.0); Neutrophils # (auto) 3.9 10 ^3/uL (1.6-8.6); Neutrophils % (auto) 60.9 % (37.0-80.0); Nucleated Red Blood Cells % 0.2 %; Red Blood Cells 4.26 10^6/uL (4.0-5.20)
[2023-10-29 18:02] LABS: Alanine Aminotransferase 13 U/L (7-40); Alkaline Phosphatase 121 U/L (46-116); Anion Gap 8 (5-15); Aspartate Aminotransferase 11 U/L (13-40); Blood Urea Nitrogen 19 mg/dL (9-23); Calcium 10.1 mg/dL (8.7-10.4); Carbon Dioxide 21 mmol/L (20-30); Chloride 105 mmol/L (98-107); Glucose 352 mg/dL (74-106); Potassium 4.2 mmol/L (3.5-5.1); Sodium 134 mmol/L (136-145)
[2023-10-29 18:03] LABS: Albumin 3.6 g/dL (3.2-4.8); Bilirubin, Total 0.2 mg/dL (0.2-1.0); Total Protein 7.5 g/dL (5.7-8.2)
[2023-10-29 18:08] LABS: Urine Blood 2+ /uL (Negative); Urine Clarity Ex.Turbid (Clear); Urine Color Colorless (Yellow); Urine Protein, UAD 1+ (Negative); Urine Specific Gravity 1.007 (1.001-1.035); Urine Urobilinogen Normal (Negative); Urine WBC 1146 /hpf (0 - 5); Urine WBC Clumps PRESENT /hpf (None Seen); Urine pH 6.5 (5.0-9.0)
[2023-10-30] MEDS ORDERED: ONDANSETRON HCL 4 MG/2 ML VIAL IV PRN (03:00)
[2023-10-30] MEDS ORDERED: ACETAMINOPHEN 325 MG TAB PO PRN (03:00)
[2023-10-30] MEDS ORDERED: DEXTROSE (50%) 50ML SYRG IV PRN (03:00)
[2023-10-30] MEDS: HYDROcodone-ACET 5/325MG TAB PO ONE (05:20)
[2023-10-30] MEDS: ACCU-CHEK COMFORT CURVE STRIP VI SCH (06:00)
[2023-10-30] MEDS: InsuLIN REG 1unit/0.01ml Soln (100units/ml) SC SCH (06:00)
[2023-10-30] MEDS: cefTRIAXone 1GM/50ML D5W 50 ML IV ONE (07:46)
[2023-10-30] MEDS: MIDODRINE HCL 10 MG TAB PO SCH ×2 (09:13→15:23)
[2023-10-30] MEDS: cefTRIAXone 1GM/50ML D5W 50 ML IV SCH (09:14)
[2023-10-30] MEDS: APIXABAN 5 MG TAB PO SCH (09:14)
[2023-10-30 10:05] VITALS: PULSE 84; RESP 15; O2SAT 98
[2023-10-30] MEDS: SODIUM CHLORIDE 0.9% 1,000 ML IV ONE (14:27)
[2023-10-30 17:00] VITALS: BP 91/49; PULSE 106; RESP 14; TEMP 98.3; O2SAT 99
[2023-10-30 18:40] VITALS: BP 90/65; PULSE 94; RESP 17; TEMP 97.7
[2023-10-30] MEDS: traMADol HCL 50 MG TAB PO PRN (18:47)
[2023-10-30 20:50] VITALS: BP 90/65; PULSE 94; RESP 17; TEMP 97.7; O2SAT 99
[2023-10-31] VITALS (8 sets, daily range): BP systolic 78–111; BP diastolic 48–81; PULSE 78–99; RESP 16–21; TEMP 97.9–98.9; O2SAT 95–100
[2023-10-31 07:17] LABS: Chloride 102 mmol/L (98-107); Potassium 4.3 mmol/L (3.5-5.1); Sodium 133 mmol/L (136-145)
[2023-10-31 07:18] LABS: Anion Gap 7 (5-15); Calcium 10.1 mg/dL (8.5-10.1); Carbon Dioxide 24 mmol/L (20-30)
[2023-10-31 07:22] LABS: Basophils # (auto) 0 10 ^3/uL (0-0.2); Basophils % (auto) 0.3 % (0.0-2.0); Eosinophils # (auto) 0.2 10 ^3/uL (0-0.8); Eosinophils % (auto) 2.5 % (0.0-7.0); Hematocrit 34.2 % (36.0-46.0); Hemoglobin 11.3 g/dL (12.2-16.2); Lymphocytes # (auto) 1.4 10 ^3/uL (0.4-5.4); Lymphocytes % (auto) 17.8 % (10.0-50.0); Mean Corpuscular Hemoglobin 27.5 pg (28.0-32.0); Mean Corpuscular Hgb Conc. 33.2 g/dL (32.0-36.0); Mean Corpuscular Volume 82.9 fL (80.0-100.0); Monocytes # (auto) 1.4 10 ^3/uL (0-1.3); Monocytes % (auto) 17.9 % (0.0-12.0); Neutrophils # (auto) 4.8 10 ^3/uL (1.6-8.6); Neutrophils % (auto) 61.5 % (37.0-80.0); Nucleated Red Blood Cells % 0.2 %; Red Blood Cells 4.12 10^6/uL (4.0-5.20); Red Cell Distribution Width 13.2 % (11.8-14.3); White Blood Cell 7.7 10^3/uL (4.4-10.8)
[2023-10-31 07:23] LABS: BUN/Creatinine Ratio 21.4 (10.0-20.0); Blood Urea Nitrogen 24 mg/dL (9-23); Glucose 250 mg/dL (74-106)
[2023-10-31] MEDS: SODIUM CHLORIDE 0.9% 1,000 ML IV SCH (08:30)
[2023-10-31] MEDS: HYDROcodone-ACET 5/325MG TAB PO PRN (16:30)
[2023-11-01] VITALS (7 sets, daily range): BP systolic 97–118; BP diastolic 47–58; PULSE 71–93; RESP 16–21; TEMP 98–98.7; O2SAT 95–97
[2023-11-02 05:00] VITALS: BP 96/52; PULSE 60; RESP 16; TEMP 98; O2SAT 96
[2023-11-02 09:00] VITALS: BP 104/54; PULSE 68; RESP 18; TEMP 98.3; O2SAT 97
[2023-11-02 13:00] VITALS: BP 105/56; PULSE 65; RESP 20; TEMP 98.3; O2SAT 100
[2023-11-02 17:00] VITALS: BP 99/51; PULSE 74; RESP 18; TEMP 98.7; O2SAT 96
[2023-11-02 21:00] VITALS: BP 92/46; PULSE 69; RESP 16; TEMP 98.3; O2SAT 96
[2023-11-03 01:00] VITALS: BP 82/42; PULSE 66; RESP 17; TEMP 97.7; O2SAT 95
[2023-11-03 05:00] VITALS: BP 92/43; PULSE 82; RESP 16; TEMP 98.1; O2SAT 94
[2023-11-03 09:00] VITALS: BP 109/61; PULSE 85; RESP 15; TEMP 98.1; O2SAT 98
[2023-11-03] MEDS ORDERED: FLUC200T50 PO (13:11)
[2023-11-03] MEDS ORDERED: NITR50CA24 PO (13:11)
[2023-11-03 14:00] VITALS: BP 81/47; PULSE 94; RESP 18; TEMP 99.2; O2SAT 100
== END 2023-11-03 17:45 | disposition home health service (06) | DRG 871 ==
LOC: ER 15:42 → EDBD 15:42 → EDUNIT# 15:42 → OVERFLOW 10-30 03:00 → WEST WING 10-30 15:54
PROVIDERS: ADMIT Family Medicine; ATTEND Family Medicine
DX: A41.9 Sepsis, unspecified organism (principal); E43 Unspecified severe protein-calorie malnutrition; N13.6 Pyonephrosis; I13.0 Hypertensive heart and chronic kidney disease with heart failure and stage 1 through stage 4 chronic kidney disease, or unspecified chronic kidney disease; S22.43XA Multiple fractures of ribs, bilateral, initial encounter for closed fracture; E11.22 Type 2 diabetes mellitus with diabetic chronic kidney disease; I25.10 Atherosclerotic heart disease of native coronary artery without angina pectoris; I48.91 Unspecified atrial fibrillation; I50.9 Heart failure, unspecified; N18.9 Chronic kidney disease, unspecified; N20.0 Calculus of kidney; F41.9 Anxiety disorder, unspecified; F32.A Depression, unspecified; W18.39XA Other fall on same level, initial encounter; D26.9 Other benign neoplasm of uterus, unspecified; R29.6 Repeated falls; Z88.1 Allergy status to other antibiotic agents; Z95.1 Presence of aortocoronary bypass graft; Z88.5 Allergy status to narcotic agent; Z90.49 Acquired absence of other specified parts of digestive tract; Y93.89 Activity, other specified; Y92.89 Other specified places as the place of occurrence of the external cause; Y99.8 Other external cause status; Z79.84 Long term (current) use of oral hypoglycemic drugs; Z79.4 Long term (current) use of insulin; Z82.49 Family history of ischemic heart disease and other diseases of the circulatory system; Z83.3 Family history of diabetes mellitus; Z68.21 Body mass index [BMI] 21.0-21.9, adult; Z86.73 Personal history of transient ischemic attack (TIA), and cerebral infarction without residual deficits
CPT/HCPCS: 36415; 74176; 80048; 80053; 81001; 82962; 83605; 84484; 85025; 87040; 87081; 87086; G0378; J1815; J2405

== ENCOUNTER 2023-11-22 22:23 | Emergency (ER) | payer OTHER, MEDICAID ==
[~2023-11-22] VITALS: Ht 172.7 cm; Wt 54.5 kg
[~2023-11-22 22:23] MED LIST changes: -APIX5TAB PO; +FLUC200T50 PO; +NITR50CA24 PO
[2023-11-22 23:01] LABS: Basophils # (auto) 0 10 ^3/uL (0-0.2); Basophils % (auto) 0.3 % (0.0-2.0); Eosinophils # (auto) 0.2 10 ^3/uL (0-0.8); Eosinophils % (auto) 2.3 % (0.0-7.0); Hematocrit 33.4 % (36.0-46.0); Hemoglobin 10.8 g/dL (12.2-16.2); Lymphocytes # (auto) 2.1 10 ^3/uL (0.4-5.4); Lymphocytes % (auto) 21.3 % (10.0-50.0); Mean Corpuscular Hemoglobin 27.3 pg (28.0-32.0); Mean Corpuscular Hgb Conc. 32.2 g/dL (32.0-36.0); Mean Corpuscular Volume 84.8 fL (80.0-100.0); Monocytes # (auto) 0.8 10 ^3/uL (0-1.3); Monocytes % (auto) 8.3 % (0.0-12.0); Neutrophils # (auto) 6.7 10 ^3/uL (1.6-8.6); Neutrophils % (auto) 67.8 % (37.0-80.0); Red Blood Cells 3.94 10^6/uL (4.0-5.20); Red Cell Distribution Width 15.2 % (11.8-14.3); White Blood Cell 9.8 10^3/uL (4.4-10.8)
[2023-11-22] MEDS: SODIUM CHLORIDE 0.9% 500 ML IV ONE (23:08)
[2023-11-22 23:09] LABS: Chloride 108 mmol/L (98-107); Potassium 3.3 mmol/L (3.5-5.1); Sodium 141 mmol/L (136-145)
[2023-11-22 23:10] LABS: Anion Gap 9 (5-15); Carbon Dioxide 24 mmol/L (20-30)
[2023-11-22 23:11] LABS: Calcium 10.4 mg/dL (8.7-10.4)
[2023-11-22 23:15] LABS: BUN/Creatinine Ratio 24.4 (10.0-20.0); Blood Urea Nitrogen 21 mg/dL (9-23); Glucose 215 mg/dL (74-106)
[2023-11-22 23:29] VITALS: O2SAT 98
[2023-11-23 01:27] VITALS: BP 103/51; PULSE 90; RESP 18; TEMP 98.5
== END 2023-11-23 02:09 | disposition home or self-care (01) ==
LOC: EDBD 22:23 → ER 22:23
DX: R55 Syncope and collapse (principal); I95.9 Hypotension, unspecified; I11.0 Hypertensive heart disease with heart failure; I50.9 Heart failure, unspecified; I25.10 Atherosclerotic heart disease of native coronary artery without angina pectoris; I48.91 Unspecified atrial fibrillation; E03.9 Hypothyroidism, unspecified; Z95.1 Presence of aortocoronary bypass graft; Z90.49 Acquired absence of other specified parts of digestive tract; Z79.4 Long term (current) use of insulin; Z79.899 Other long term (current) drug therapy; Z88.1 Allergy status to other antibiotic agents; Z88.5 Allergy status to narcotic agent; Z88.8 Allergy status to other drugs, medicaments and biological substances
CPT/HCPCS: 36415; 80048; 84484; 85025; 93005; 99284; J7040

== ENCOUNTER 2023-12-19 21:16 | Emergency (ER) | payer OTHER, MEDICAID ==
[~2023-12-19] VITALS: Ht 152.4 cm; Wt 45.0 kg
[2023-12-19 22:11] VITALS: PULSE 120; RESP 19; O2SAT 100
[2023-12-19 22:17] LABS: Hematocrit 36.8 % (36.0-46.0); Hemoglobin 11.8 g/dL (12.2-16.2); Mean Corpuscular Hemoglobin 27.5 pg (28.0-32.0); Mean Corpuscular Volume 86.1 fL (80.0-100.0); Red Blood Cells 4.27 10^6/uL (4.0-5.20); Red Cell Distribution Width 13.6 % (11.8-14.3); White Blood Cell 6.4 10^3/uL (4.4-10.8)
[2023-12-19 22:19] LABS: Basophils % (manual) 0 (0.0-2.0); Blast Cells 0; Metamyelocytes % 0; Myelocytes % 0; Promyelocytes % 0
[2023-12-19 22:23] LABS: Chloride 97 mmol/L (98-107); Potassium 3.5 mmol/L (3.5-5.1); Sodium 128 mmol/L (136-145)
[2023-12-19 22:24] LABS: Anion Gap 11 (5-15); Calcium 10.2 mg/dL (8.5-10.1); Carbon Dioxide 20 mmol/L (20-30)
[2023-12-19 22:29] LABS: BUN/Creatinine Ratio 15.1 (10.0-20.0); Blood Urea Nitrogen 16 mg/dL (9-23); Glucose 340 mg/dL (74-106)
[2023-12-19 22:34] LABS: Band Neutrophils % (manual) 10; Eosinophils % (manual) 1 (0-7); Lymphocytes % (manual) 28 (10.0-50.0); Monocytes % (manual) 11 (0-12); Reactive Lymphocytes 1
[2023-12-19 22:35] LABS: Platelet Estimate Adequate
[2023-12-19 22:40] LABS: Lipase 50 U/L (12-53)
[2023-12-19] MEDS: SODIUM CHLORIDE 0.9% 1,000 ML IV ONE (23:14)
[2023-12-20] VITALS: BP 103/60; PULSE 115; RESP 15; TEMP 97.5; O2SAT 100
== END 2023-12-20 00:46 | disposition home or self-care (01) ==
LOC: ER 21:16 → EDBD 21:16 → ER 12-20 00:46
DX: G90.8 Other disorders of autonomic nervous system (principal); E11.9 Type 2 diabetes mellitus without complications; E87.1 Hypo-osmolality and hyponatremia; I48.91 Unspecified atrial fibrillation; F41.9 Anxiety disorder, unspecified; M19.90 Unspecified osteoarthritis, unspecified site; I25.10 Atherosclerotic heart disease of native coronary artery without angina pectoris; F32.A Depression, unspecified; I10 Essential (primary) hypertension; E07.9 Disorder of thyroid, unspecified; I11.0 Hypertensive heart disease with heart failure; I50.9 Heart failure, unspecified; Z90.49 Acquired absence of other specified parts of digestive tract; Z95.1 Presence of aortocoronary bypass graft; Z88.5 Allergy status to narcotic agent; Z88.1 Allergy status to other antibiotic agents; Z88.8 Allergy status to other drugs, medicaments and biological substances; Z79.899 Other long term (current) drug therapy
CPT/HCPCS: 36415; 80048; 82962; 83690; 84484; 85007; 85027; 93005; 96360; 99284; J7030

== ENCOUNTER 2024-01-14 03:53 | Inpatient (IN) | payer OTHER, MEDICAID ==
[2024-01-14] VITALS (10 sets, daily range): BP systolic 85–129; BP diastolic 45–70; PULSE 66–79; RESP 11–27; TEMP 98.1–99.3; O2SAT 98–100
[~2024-01-14] VITALS: Ht 157.5 cm; Wt 56.2 kg
[2024-01-14 04:22] LABS: Basophils # (auto) 0.1 10 ^3/uL (0-0.2); Eosinophils # (auto) 0 10 ^3/uL (0-0.8); Eosinophils % (auto) 0.1 % (0.0-7.0); Lymphocytes # (auto) 0.8 10 ^3/uL (0.4-5.4); Mean Corpuscular Volume 82.5 fL (80.0-100.0)
[2024-01-14 04:25] LABS: Basophils % (auto) 0.3 % (0.0-2.0); Hematocrit 21.6 % (36.0-46.0); Hemoglobin 7.1 g/dL (12.2-16.2); Lymphocytes % (auto) 3.3 % (10.0-50.0); Mean Corpuscular Hemoglobin 27.3 pg (28.0-32.0); Mean Corpuscular Hgb Conc. 33.1 g/dL (32.0-36.0); Monocytes # (auto) 1.4 10 ^3/uL (0-1.3); Monocytes % (auto) 5.9 % (0.0-12.0); Neutrophils # (auto) 21.1 10 ^3/uL (1.6-8.6); Neutrophils % (auto) 90.4 % (37.0-80.0); Red Blood Cells 2.62 10^6/uL (4.0-5.20); Red Cell Distribution Width 15.7 % (11.8-14.3); White Blood Cell 23.4 10^3/uL (4.4-10.8)
[2024-01-14 04:38] LABS: Urine Bacteria None Seen /hpf (None Seen)
[2024-01-14 04:39] LABS: Alanine Aminotransferase 25 U/L (7-40); Alkaline Phosphatase 318 U/L (46-116); Anion Gap 7 (5-15); Aspartate Aminotransferase 78 U/L (13-40); BUN/Creatinine Ratio 14.7 (10.0-20.0); Blood Urea Nitrogen 26 mg/dL (9-23); Calcium 8.6 mg/dL (8.7-10.4); Carbon Dioxide 25 mmol/L (20-30); Chloride 100 mmol/L (98-107); Glucose 96 mg/dL (74-106); Magnesium 1.9 mg/dL (1.6-2.6); Potassium 4.3 mmol/L (3.5-5.1); Sodium 132 mmol/L (136-145)
[2024-01-14 04:40] LABS: Bilirubin, Total 0.4 mg/dL (0.2-1.0); Total Protein 6.5 g/dL (5.7-8.2)
[2024-01-14] MEDS: SODIUM CHLORIDE 0.9% 1,000 ML IVB ONE (04:41)
[2024-01-14 04:59] LABS: Urine Blood 1+ /uL (Negative); Urine Clarity Ex.Turbid (Clear); Urine Color Colorless (Yellow); Urine Protein, UAD 2+ (Negative); Urine Specific Gravity 1.008 (1.001-1.035); Urine Urobilinogen Normal (Negative); Urine WBC 1612 /hpf (0 - 5); Urine WBC Clumps PRESENT /hpf (None Seen)
[2024-01-14] MEDS ORDERED: LORATADINE 10 MG TAB PO PRN (05:00)
[2024-01-14] MEDS ORDERED: ACETAMINOPHEN 500 MG TAB PO PRN (05:00)
[2024-01-14] MEDS ORDERED: diphenhdrAMINE HCL 25 MG CAP PO PRN (05:00)
[2024-01-14 05:01] LABS: Blood Alcohol < 3.0 mg/dL (<10)
[2024-01-14] MEDS: diphenhdrAMINE HCL 12.5 MG/5 ML UD PO ONE (05:09)
[2024-01-14] MEDS: CEFEPIME 2GM/50ML NS 50 ML IV ONE (05:09)
[2024-01-14] MEDS: SODIUM CHLORIDE 0.9% 1,000 ML IV ONE ×2 (05:14→05:45)
[2024-01-14] MEDS: NOREPINEPHRINE 8 MG/250ML KIT 250 ML IV SCH (05:58)
[2024-01-14] MEDS: VANCOMYCIN 1GM/200ML 200 ML IV ONE (06:28)
[2024-01-14] MEDS ORDERED: NITROGLYCERIN 0.4 MG SL TAB SL PRN (07:15)
[2024-01-14] MEDS: ENOXAPARIN SOD 60 MG/0.6 ML SYRINGE SC ONE (07:57)
[2024-01-14] MEDS: SODIUM CHLORIDE 0.9% 1,000 ML IV SCH (07:57)
[2024-01-14] MEDS: ALBUMIN 5% 250 ML IV ONE (07:58)
[2024-01-14] MEDS: ACETAMINOPHEN 325 MG TAB PO PRN (08:01)
[2024-01-14] MEDS: cefTRIAXone 1GM/50ML D5W 50 ML IV SCH (11:13)
[2024-01-14] MEDS: MIDODRINE HCL 10 MG TAB PO SCH (13:53)
[2024-01-14] MEDS: ONDANSETRON HCL 4 MG/2 ML VIAL IV PRN (16:12)
[2024-01-14 21:42] LABS: Amphetamine Screen, Urine Neg (NEGATIVE); Barbiturate Scree,Urine Neg (NEGATIVE); Benzodiazephine Screen, Urine Neg (NEGATIVE); Cocaine Screen, Urine Neg (NEGATIVE); Opiate Scree,Urine Neg (NEGATIVE)
[2024-01-14 21:43] LABS: Cannabinoid Screen, Urine Neg (NEGATIVE); Phencyclidine Screen, Urine Neg (NEGATIVE)
[2024-01-14] MEDS: ATORVASTATIN 20 MG TAB PO SCH (22:20)
[2024-01-15 07:30] VITALS: PULSE 60; RESP 20; O2SAT 100
[2024-01-15 07:53] LABS: Basophils # (auto) 0.1 10 ^3/uL (0-0.2); Eosinophils # (auto) 0.1 10 ^3/uL (0-0.8); Eosinophils % (auto) 0.6 % (0.0-7.0); Hemoglobin 10.3 g/dL (12.2-16.2); Monocytes # (auto) 1.4 10 ^3/uL (0-1.3)
[2024-01-15 07:54] LABS: Basophils % (auto) 0.7 % (0.0-2.0); Hematocrit 31.3 % (36.0-46.0); Lymphocytes # (auto) 0.8 10 ^3/uL (0.4-5.4); Lymphocytes % (auto) 4.1 % (10.0-50.0); Mean Corpuscular Hemoglobin 27.6 pg (28.0-32.0); Mean Corpuscular Volume 83.8 fL (80.0-100.0); Neutrophils # (auto) 17.3 10 ^3/uL (1.6-8.6); Neutrophils % (auto) 87.6 % (37.0-80.0); Red Blood Cells 3.74 10^6/uL (4.0-5.20); Red Cell Distribution Width 15.7 % (11.8-14.3); White Blood Cell 19.7 10^3/uL (4.4-10.8)
[2024-01-15 08:13] LABS: Alanine Aminotransferase 57 U/L (7-40); Albumin 3.4 g/dL (3.2-4.8); Alkaline Phosphatase 354 U/L (46-116); Anion Gap 8 (5-15); Aspartate Aminotransferase 73 U/L (13-40); BUN/Creatinine Ratio 20.5 (10.0-20.0); Bilirubin, Total 0.5 mg/dL (0.2-1.0); Blood Urea Nitrogen 17 mg/dL (9-23); Calcium 8.9 mg/dL (8.5-10.1); Carbon Dioxide 25 mmol/L (20-30); Chloride 108 mmol/L (98-107); Glucose 81 mg/dL (74-106); Potassium 3.5 mmol/L (3.5-5.1); Sodium 141 mmol/L (136-145)
[2024-01-15 08:14] LABS: Total Protein 7.1 g/dL (5.7-8.2)
[2024-01-15] MEDS: DEXTROSE (50%) 50ML SYRG IV ONE (11:00)
[2024-01-15] MEDS: ACCU-CHEK COMFORT CURVE STRIP VI ONE (11:34)
[2024-01-15] MEDS: InsuLIN REG 1unit/0.01ml Soln (100units/ml) SC ONE (11:49)
[2024-01-15 13:33] VITALS: PULSE 75; O2SAT 98
[2024-01-15 14:47] LABS: Hepatitis B Surface Antigen Negative (Negative)
[2024-01-15 15:08] LABS: Hepatitis C Antibody Negative (Negative)
[2024-01-15 17:00] VITALS: BP 99/51; PULSE 80; RESP 17; TEMP 98.4; O2SAT 96
[2024-01-15 20:00] VITALS: PULSE 80
[2024-01-15 21:00] VITALS: BP 100/57; PULSE 80; RESP 95; TEMP 98.8; O2SAT 95
[2024-01-16] VITALS (8 sets, daily range): BP systolic 94–160; BP diastolic 50–75; PULSE 60–83; RESP 17–19; TEMP 98.1–99.4; O2SAT 94–98
[2024-01-16 09:01] LABS: Basophils # (auto) 0.1 10 ^3/uL (0-0.2); Eosinophils # (auto) 0.2 10 ^3/uL (0-0.8); Hemoglobin 10.3 g/dL (12.2-16.2); Lymphocytes # (auto) 1.2 10 ^3/uL (0.4-5.4); Monocytes # (auto) 0.9 10 ^3/uL (0-1.3); Neutrophils # (auto) 7.2 10 ^3/uL (1.6-8.6)
[2024-01-16 09:04] LABS: Basophils % (auto) 0.8 % (0.0-2.0); Eosinophils % (auto) 1.9 % (0.0-7.0); Hematocrit 31.2 % (36.0-46.0); Lymphocytes % (auto) 12.7 % (10.0-50.0); Mean Corpuscular Hemoglobin 28.3 pg (28.0-32.0); Mean Corpuscular Hgb Conc. 33.1 g/dL (32.0-36.0); Mean Corpuscular Volume 85.4 fL (80.0-100.0); Monocytes % (auto) 8.9 % (0.0-12.0); Neutrophils % (auto) 75.7 % (37.0-80.0); Nucleated Red Blood Cells % 0.1 %; Red Blood Cells 3.65 10^6/uL (4.0-5.20); Red Cell Distribution Width 15.9 % (11.8-14.3); White Blood Cell 9.6 10^3/uL (4.4-10.8)
[2024-01-16 09:11] LABS: Chloride 109 mmol/L (98-107); Potassium 3.8 mmol/L (3.5-5.1); Sodium 140 mmol/L (136-145)
[2024-01-16 09:12] LABS: Anion Gap 7 (5-15); Calcium 8.5 mg/dL (8.5-10.1); Carbon Dioxide 24 mmol/L (20-30)
[2024-01-16 09:17] LABS: BUN/Creatinine Ratio 16.2 (10.0-20.0); Blood Urea Nitrogen 11 mg/dL (9-23); Glucose 114 mg/dL (74-106)
[2024-01-17] VITALS (7 sets, daily range): BP systolic 99–134; BP diastolic 54–70; PULSE 74–83; RESP 15–18; TEMP 97.5–98.1; O2SAT 94–100
[2024-01-17 06:45] LABS: Basophils # (auto) 0.1 10 ^3/uL (0-0.2); Eosinophils # (auto) 0.3 10 ^3/uL (0-0.8); Eosinophils % (auto) 3.1 % (0.0-7.0); Mean Corpuscular Hgb Conc. 32.8 g/dL (32.0-36.0); Monocytes # (auto) 0.8 10 ^3/uL (0-1.3); Red Blood Cells 3.73 10^6/uL (4.0-5.20); White Blood Cell 8.9 10^3/uL (4.4-10.8)
[2024-01-17 06:48] LABS: Basophils % (auto) 0.9 % (0.0-2.0); Hematocrit 31.9 % (36.0-46.0); Hemoglobin 10.5 g/dL (12.2-16.2); Lymphocytes # (auto) 1.1 10 ^3/uL (0.4-5.4); Lymphocytes % (auto) 11.8 % (10.0-50.0); Mean Corpuscular Hemoglobin 28.1 pg (28.0-32.0); Mean Corpuscular Volume 85.5 fL (80.0-100.0); Monocytes % (auto) 8.9 % (0.0-12.0); Neutrophils # (auto) 6.7 10 ^3/uL (1.6-8.6); Neutrophils % (auto) 75.3 % (37.0-80.0); Red Cell Distribution Width 15.4 % (11.8-14.3)
[2024-01-17 07:04] LABS: Chloride 108 mmol/L (98-107); Potassium 3.1 mmol/L (3.5-5.1); Sodium 140 mmol/L (136-145)
[2024-01-17 07:05] LABS: Calcium 8.4 mg/dL (8.7-10.4); Carbon Dioxide 27 mmol/L (20-30)
[2024-01-17 07:10] LABS: BUN/Creatinine Ratio 8.9 (10.0-20.0); Blood Urea Nitrogen 5 mg/dL (9-23); Glucose 189 mg/dL (74-106)
[2024-01-17] MEDS: GADOTERATE MEG 10 MMOL/20ml INJ (0.5MMOL/ml) IV ONE (07:31)
[2024-01-17 09:24] LABS: Anion Gap 5 (5-15)
[2024-01-17] MEDS: POTASSIUM CHL 20 Meq TABLET PO ONE (16:17)
[2024-01-18] VITALS (8 sets, daily range): BP systolic 91–154; BP diastolic 42–65; PULSE 68–90; RESP 17–20; TEMP 98–98.6; O2SAT 93–99
[2024-01-19] VITALS (8 sets, daily range): BP systolic 100–158; BP diastolic 44–75; PULSE 74–91; RESP 16–18; TEMP 98–98.5; O2SAT 95–99
[2024-01-19 01:14] LABS: COVID19 ANTIGEN SOFIA FIA NEGATIVE (NEGATIVE)
[2024-01-20 01:00] VITALS: BP 98/51; PULSE 86; RESP 17; TEMP 98.3; O2SAT 95
[2024-01-20 05:00] VITALS: BP 102/52; PULSE 89; RESP 16; TEMP 97.8; O2SAT 96
[2024-01-20 08:00] VITALS: PULSE 81; RESP 16
[2024-01-20 09:00] VITALS: BP 95/53; PULSE 87; RESP 16; TEMP 98.4; O2SAT 98
[2024-01-20 14:00] VITALS: BP 155/67; PULSE 79; RESP 20; TEMP 98.1; O2SAT 97
[2024-01-20 16:55] VITALS: BP 124/63; PULSE 81; RESP 16; TEMP 98.2; O2SAT 95
== END 2024-01-20 20:20 | DRG 871 ==
LOC: ER 03:53 → EDBD 03:53 → TELE 07:18 → TELE-CENTR 01-15 13:20
PROVIDERS: ADMIT Nurse Practitioner; ATTEND Family Medicine
PROC: 30233N1 Transfusion of Nonautologous Red Blood Cells into Peripheral Vein, Percutaneous Approach (ICD-10-PCS; principal; 2024-01-14)
PROC: 05HA33Z Insertion of Infusion Device into Left Brachial Vein, Percutaneous Approach (ICD-10-PCS; 2024-01-19)
PROC: B54NZZA Ultrasonography of Left Upper Extremity Veins, Guidance (ICD-10-PCS; 2024-01-19)
DX: A41.9 Sepsis, unspecified organism (principal); G93.41 Metabolic encephalopathy; I21.A1 Myocardial infarction type 2; N17.0 Acute kidney failure with tubular necrosis; R57.1 Hypovolemic shock; R65.21 Severe sepsis with septic shock; I50.23 Acute on chronic systolic (congestive) heart failure; N13.6 Pyonephrosis; R18.8 Other ascites; I48.20 Chronic atrial fibrillation, unspecified; D63.8 Anemia in other chronic diseases classified elsewhere; E03.9 Hypothyroidism, unspecified; E78.5 Hyperlipidemia, unspecified; F32.A Depression, unspecified; I11.0 Hypertensive heart disease with heart failure; I25.10 Atherosclerotic heart disease of native coronary artery without angina pectoris; C55 Malignant neoplasm of uterus, part unspecified; E11.40 Type 2 diabetes mellitus with diabetic neuropathy, unspecified; Z20.822 Contact with and (suspected) exposure to COVID-19; F41.9 Anxiety disorder, unspecified; G89.29 Other chronic pain; N85.2 Hypertrophy of uterus; N95.0 Postmenopausal bleeding; Z66 Do not resuscitate; Z90.49 Acquired absence of other specified parts of digestive tract; Z95.1 Presence of aortocoronary bypass graft; Z88.5 Allergy status to narcotic agent; Z88.8 Allergy status to other drugs, medicaments and biological substances; Z86.718 Personal history of other venous thrombosis and embolism; Z82.49 Family history of ischemic heart disease and other diseases of the circulatory system; Z83.3 Family history of diabetes mellitus; Z79.4 Long term (current) use of insulin; Z79.84 Long term (current) use of oral hypoglycemic drugs
CPT/HCPCS: 36415; 36430; 71045; 73723; 74176; 76856; 80048; 80053; 80307; 80320; 81001; 82270; 82962; 83036; 83605; 83735; 84484; 85025; 86803; 86850; 86900; 86901; 86920; 87040; 87086; 87340; 87426; 93005; 96361; 96365; 96367; 96368; 97163; G0378; J0692; J2405

== ENCOUNTER 2024-04-06 08:36 | Inpatient (IN) | payer OTHER, MEDICAID ==
[~2024-04-06] VITALS: Ht 154.9 cm; Wt 45.0 kg
[2024-04-06] MEDS: SODIUM CHLORIDE 0.9% 1,000 ML IV ONE (09:33)
[2024-04-06 10:09] LABS: Chloride 102 mmol/L (98-107); Potassium 2.9 mmol/L (3.5-5.1); Sodium 137 mmol/L (136-145)
[2024-04-06 10:10] LABS: Anion Gap 14 (5-15); Calcium 9.7 mg/dL (8.7-10.4); Carbon Dioxide 21 mmol/L (20-31)
[2024-04-06 10:15] LABS: Glucose 221 mg/dL (74-106)
[2024-04-06 10:19] LABS: BUN/Creatinine Ratio 7.6 (10.0-20.0); Blood Urea Nitrogen < 5 mg/dL (9-23)
[2024-04-06 10:24] LABS: Basophils # (auto) 0 10 ^3/uL (0-0.2); Basophils % (auto) 0.5 % (0.0-2.0); Eosinophils # (auto) 0.1 10 ^3/uL (0-0.8); Eosinophils % (auto) 1.2 % (0.0-7.0); Hematocrit 34.8 % (36.0-46.0); Hemoglobin 11.8 g/dL (12.2-16.2); Lymphocytes # (auto) 1.9 10 ^3/uL (0.4-5.4); Lymphocytes % (auto) 25.6 % (10.0-50.0); Mean Corpuscular Hemoglobin 29.7 pg (28.0-32.0); Mean Corpuscular Hgb Conc. 33.8 g/dL (32.0-36.0); Monocytes # (auto) 0.6 10 ^3/uL (0-1.3); Monocytes % (auto) 8.1 % (0.0-12.0); Neutrophils # (auto) 4.7 10 ^3/uL (1.6-8.6); Neutrophils % (auto) 64.6 % (37.0-80.0); Nucleated Red Blood Cells % 0.1 %; Platelet Count (auto) 287 10^3/uL (140-450); Red Blood Cells 3.96 10^6/uL (4.0-5.20); Red Cell Distribution Width 18.2 % (11.8-14.3); White Blood Cell 7.3 10^3/uL (4.4-10.8)
[2024-04-06] MEDS: ONDANSETRON HCL 4 MG/2 ML VIAL IV ONE (10:57)
[2024-04-06] MEDS: SULFAMETH-TRIMETH 80/16MG-ML 10 ML in D5W 5% 250 ML IV ONE (10:57)
[2024-04-06 12:24] LABS: Urine Bacteria FEW /hpf (None Seen); Urine Blood TRACE /uL (Negative); Urine Clarity Turbid (Clear); Urine Color Colorless (Yellow); Urine Hyaline Cast FEW /lpf (0 - 2); Urine Protein, UAD TRACE (Negative); Urine Specific Gravity 1.006 (1.001-1.035); Urine Urobilinogen Normal (Negative); Urine WBC 103 /hpf (0 - 5)
[2024-04-06] MEDS ORDERED: IBUPROFEN 600 MG TAB PO PRN (15:30)
[2024-04-06] MEDS ORDERED: DEXTROSE (50%) 50ML SYRG IV PRN (15:30)
[2024-04-06] MEDS ORDERED: NITROGLYCERIN 0.4 MG SL TAB SL PRN (17:00)
[2024-04-06] MEDS: ACCU-CHEK COMFORT CURVE STRIP VI SCH (17:41)
[2024-04-06] MEDS: POTASSIUM CHL 20 Meq TABLET PO ONE (17:45)
[2024-04-06] MEDS: InsuLIN REG 1unit/0.01ml Soln (100units/ml) SC SCH ×2 (17:48→22:43)
[2024-04-06 20:01] VITALS: PULSE 99; RESP 12; O2SAT 100
[2024-04-06] MEDS: SULFAMETH-TRIMETH 80/16MG-ML 10 ML in D5W 5% 250 ML IV SCH (22:00)
[2024-04-06] MEDS: SODIUM CHLOR 0.9% PF (SALINE LOCK) 10ML VIAL/SYR IV SCH (22:24)
[2024-04-06] MEDS: ATORVASTATIN 20 MG TAB PO SCH (22:41)
[2024-04-06 23:03] VITALS: PULSE 96; RESP 19; TEMP 98.7; O2SAT 99
[2024-04-07] VITALS (9 sets, daily range): BP systolic 94–121; BP diastolic 37–73; PULSE 16–112; RESP 16–20; TEMP 97.5–98.9; O2SAT 93–100
[2024-04-07 07:08] LABS: Basophils # (auto) 0 10 ^3/uL (0-0.2); Basophils % (auto) 0.3 % (0.0-2.0); Eosinophils # (auto) 0.2 10 ^3/uL (0-0.8); Eosinophils % (auto) 1.7 % (0.0-7.0); Hematocrit 35.1 % (36.0-46.0); Hemoglobin 11.7 g/dL (12.2-16.2); Lymphocytes # (auto) 2.1 10 ^3/uL (0.4-5.4); Lymphocytes % (auto) 21.3 % (10.0-50.0); Mean Corpuscular Hemoglobin 29.5 pg (28.0-32.0); Mean Corpuscular Hgb Conc. 33.4 g/dL (32.0-36.0); Mean Corpuscular Volume 88.4 fL (80.0-100.0); Monocytes # (auto) 0.8 10 ^3/uL (0-1.3); Neutrophils # (auto) 6.7 10 ^3/uL (1.6-8.6); Neutrophils % (auto) 68.7 % (37.0-80.0); Nucleated Red Blood Cells % 0.2 %; Platelet Count (auto) 297 10^3/uL (140-450); Red Blood Cells 3.97 10^6/uL (4.0-5.20); Red Cell Distribution Width 18.2 % (11.8-14.3); White Blood Cell 9.7 10^3/uL (4.4-10.8)
[2024-04-07 07:18] LABS: Alanine Aminotransferase 21 U/L (7-40); Albumin 3.7 g/dL (3.2-4.8); Alkaline Phosphatase 92 U/L (46-116); Anion Gap 13 (5-15); Aspartate Aminotransferase 16 U/L (13-40); Calcium 9.9 mg/dL (8.7-10.4); Carbon Dioxide 23 mmol/L (20-31); Chloride 104 mmol/L (98-107); Glucose 187 mg/dL (74-106); Potassium 2.9 mmol/L (3.5-5.1); Sodium 140 mmol/L (136-145)
[2024-04-07 07:19] LABS: BUN/Creatinine Ratio 8.5 (10.0-20.0); Bilirubin, Total 0.4 mg/dL (0.2-1.0); Blood Urea Nitrogen < 5 mg/dL (9-23); Total Protein 7.2 g/dL (5.7-8.2)
[2024-04-07] MEDS ORDERED: ASPirin 81 mg TAB PO SCH (10:00)
[2024-04-07] MEDS: LINEZOLID 600MG/300ML 300 ML IV SCH (22:17)
[2024-04-08] VITALS (10 sets, daily range): BP systolic 80–108; BP diastolic 41–65; PULSE 82–103; RESP 13–18; TEMP 97.5–99.6; O2SAT 94–100
[2024-04-08] MEDS: ONDANSETRON HCL 4 MG/2 ML VIAL IV PRN (09:46)
[2024-04-08] MEDS: SOD CHL 0.9%/ KCL 40MEQ 1,000 ML IV SCH (12:36)
[2024-04-08] MEDS: SODIUM CHLORIDE 0.9% 1,450 ML IV ONE (12:45)
[2024-04-08 16:21] LABS: Erythrocyte Sedimentation Rate 20 mm/hr (0-20)
[2024-04-08] MEDS: ACETAMINOPHEN 325 MG TAB PO PRN (18:16)
[2024-04-09] VITALS (7 sets, daily range): BP systolic 92–137; BP diastolic 51–76; PULSE 67–104; RESP 13–18; TEMP 97.7–98.9; O2SAT 95–100
[2024-04-09 12:34] LABS: Anion Gap 8 (5-15); Carbon Dioxide 23 mmol/L (20-31); Chloride 107 mmol/L (98-107); Potassium 3.3 mmol/L (3.5-5.1); Sodium 138 mmol/L (136-145)
[2024-04-09 12:35] LABS: Calcium 9.5 mg/dL (8.7-10.4)
[2024-04-09 12:40] LABS: Glucose 148 mg/dL (74-106)
[2024-04-09 12:43] LABS: BUN/Creatinine Ratio 8.9 (10.0-20.0); Blood Urea Nitrogen < 5 mg/dL (9-23)
[2024-04-09 15:19] LABS: Basophils # (auto) 0.1 10 ^3/uL (0-0.2); Basophils % (auto) 0.7 % (0.0-2.0); Eosinophils # (auto) 0.2 10 ^3/uL (0-0.8); Eosinophils % (auto) 3.2 % (0.0-7.0); Hematocrit 35.5 % (36.0-46.0); Hemoglobin 11.6 g/dL (12.2-16.2); Lymphocytes # (auto) 1.9 10 ^3/uL (0.4-5.4); Lymphocytes % (auto) 26.2 % (10.0-50.0); Mean Corpuscular Hemoglobin 29.3 pg (28.0-32.0); Mean Corpuscular Hgb Conc. 32.8 g/dL (32.0-36.0); Mean Corpuscular Volume 89.4 fL (80.0-100.0); Monocytes # (auto) 0.8 10 ^3/uL (0-1.3); Monocytes % (auto) 10.5 % (0.0-12.0); Neutrophils # (auto) 4.3 10 ^3/uL (1.6-8.6); Neutrophils % (auto) 59.4 % (37.0-80.0); Nucleated Red Blood Cells % 0.4 %; Platelet Count (auto) 271 10^3/uL (140-450); Red Blood Cells 3.97 10^6/uL (4.0-5.20); Red Cell Distribution Width 17.1 % (11.8-14.3); White Blood Cell 7.3 10^3/uL (4.4-10.8)
[2024-04-09] MEDS: POTASSIUM EFFERVESENT TAB 25 MEQ PO ONE (15:28)
[2024-04-10] VITALS (8 sets, daily range): BP systolic 107–126; BP diastolic 47–77; PULSE 93–106; RESP 16–18; TEMP 97.5–98.7; O2SAT 98–100
[2024-04-10] MEDS: Juven Orange Powder PACKET 27.5gm PO SCH (22:00)
[2024-04-10] MEDS: DOCUSATE SOD 100 MG CAP PO PRN (23:01)
[2024-04-11] VITALS (9 sets, daily range): BP systolic 71–113; BP diastolic 32–67; PULSE 89–119; RESP 15–20; TEMP 98.1–98.6; O2SAT 95–100
[2024-04-11] MEDS: CATHFLO ACTIVASE (ALTEPLASE) 2 MG VIAL IV ONE ×2 (14:37→16:50)
[2024-04-11] MEDS: SODIUM CHLORIDE 0.9% 500 ML IV ONE (16:30)
[2024-04-11] MEDS ORDERED: AMPICILLIN & SULBACTAM SODIUM 3 GM in SODIUM CHL 0.9% 100 ML IV SCH (17:15)
[2024-04-11 18:11] LABS: Basophils # (auto) 0 10 ^3/uL (0-0.2); Basophils % (auto) 0.5 % (0.0-2.0); Eosinophils # (auto) 0.2 10 ^3/uL (0-0.8); Eosinophils % (auto) 3.2 % (0.0-7.0); Hematocrit 35.3 % (36.0-46.0); Hemoglobin 11.3 g/dL (12.2-16.2); Lymphocytes # (auto) 1.4 10 ^3/uL (0.4-5.4); Mean Corpuscular Hemoglobin 28.8 pg (28.0-32.0); Mean Corpuscular Volume 90.1 fL (80.0-100.0); Monocytes # (auto) 0.4 10 ^3/uL (0-1.3); Monocytes % (auto) 8.1 % (0.0-12.0); Neutrophils # (auto) 2.9 10 ^3/uL (1.6-8.6); Neutrophils % (auto) 59.2 % (37.0-80.0); Nucleated Red Blood Cells % 0.1 %; Platelet Count (auto) 248 10^3/uL (140-450); Red Blood Cells 3.92 10^6/uL (4.0-5.20); White Blood Cell 4.9 10^3/uL (4.4-10.8)
[2024-04-11 18:29] LABS: Alanine Aminotransferase 20 U/L (7-40); Albumin 3.6 g/dL (3.2-4.8); Alkaline Phosphatase 102 U/L (46-116); Anion Gap 8 (5-15); Aspartate Aminotransferase 19 U/L (13-40); BUN/Creatinine Ratio 11.3 (10.0-20.0); Bilirubin, Total 0.3 mg/dL (0.2-1.0); Blood Urea Nitrogen 6 mg/dL (9-23); Calcium 9.6 mg/dL (8.7-10.4); Carbon Dioxide 23 mmol/L (20-31); Chloride 107 mmol/L (98-107); Glucose 154 mg/dL (74-106); Potassium 4.1 mmol/L (3.5-5.1); Sodium 138 mmol/L (136-145)
[2024-04-11 18:30] LABS: Total Protein 6.6 g/dL (5.7-8.2)
[2024-04-11] MEDS: MIDODRINE HCL 10 MG TAB PO SCH (21:59)
[2024-04-12] VITALS (8 sets, daily range): BP systolic 86–136; BP diastolic 55–76; PULSE 54–114; RESP 16–19; TEMP 95.8–98.9; O2SAT 97–100
[2024-04-12 15:52] LABS: Chloride 103 mmol/L (98-107); Potassium 4.6 mmol/L (3.5-5.1); Sodium 137 mmol/L (136-145)
[2024-04-12 15:54] LABS: Anion Gap 6 (5-15); Calcium 9.8 mg/dL (8.7-10.4); Carbon Dioxide 28 mmol/L (20-31)
[2024-04-12 15:59] LABS: Blood Urea Nitrogen 14 mg/dL (9-23); Glucose 243 mg/dL (74-106)
[2024-04-12] MEDS: SODIUM CHLORIDE 0.9% 500 ML IV ONE (17:28)
[2024-04-12] MEDS: HYDROcodone-ACET 5/325MG TAB PO PRN (22:51)
[2024-04-12] MEDS: LINEZOLID 600MG TABLET PO SCH (22:51)
[2024-04-12] MEDS: INSULIN LANTUS (GLARGINE) 1 /0.01ml (100units/ml) SC SCH (22:53)
[2024-04-13] VITALS (11 sets, daily range): BP systolic 68–149; BP diastolic 41–79; PULSE 61–93; RESP 16–18; TEMP 97.8–98.3; O2SAT 93–100
[2024-04-13 07:03] LABS: Anion Gap 7 (5-15); Calcium 9.9 mg/dL (8.7-10.4); Carbon Dioxide 26 mmol/L (20-31); Chloride 106 mmol/L (98-107); Potassium 3.7 mmol/L (3.5-5.1); Sodium 139 mmol/L (136-145)
[2024-04-13 07:09] LABS: BUN/Creatinine Ratio 16.9 (10.0-20.0); Blood Urea Nitrogen 10 mg/dL (9-23); Glucose 111 mg/dL (74-106)
[2024-04-13 07:17] LABS: Basophils # (auto) 0 10 ^3/uL (0-0.2); Basophils % (auto) 0.7 % (0.0-2.0); Eosinophils # (auto) 0.3 10 ^3/uL (0-0.8); Eosinophils % (auto) 4.8 % (0.0-7.0); Hematocrit 32.9 % (36.0-46.0); Hemoglobin 10.7 g/dL (12.2-16.2); Lymphocytes # (auto) 2.2 10 ^3/uL (0.4-5.4); Mean Corpuscular Hemoglobin 29.3 pg (28.0-32.0); Mean Corpuscular Hgb Conc. 32.7 g/dL (32.0-36.0); Mean Corpuscular Volume 89.7 fL (80.0-100.0); Monocytes # (auto) 0.6 10 ^3/uL (0-1.3); Monocytes % (auto) 10.9 % (0.0-12.0); Neutrophils # (auto) 2.2 10 ^3/uL (1.6-8.6); Neutrophils % (auto) 42.6 % (37.0-80.0); Platelet Count (auto) 251 10^3/uL (140-450); Red Blood Cells 3.66 10^6/uL (4.0-5.20); Red Cell Distribution Width 16.1 % (11.8-14.3); White Blood Cell 5.3 10^3/uL (4.4-10.8)
[2024-04-13] MEDS: LACTATED RINGER'S 1,000 ML IV ONE (14:15)
[2024-04-14] VITALS (12 sets, daily range): BP systolic 76–125; BP diastolic 52–75; PULSE 72–93; RESP 16–17; TEMP 36.5; O2SAT 93–100
[2024-04-14] MEDS: IOHEXOL 300 MG/ML 100ML BOTTLE IJ ONE ×3 (07:55→07:56)
[2024-04-14] MEDS: SODIUM CHLORIDE 0.9% 500 ML IV ONE (08:03)
[2024-04-14] MEDS: IOTHALAMATE MEGLUMINE INJ 250ML BOT UR ONE ×2 (10:04)
[2024-04-14] MEDS ORDERED: LINE1TAB10 PO (14:04)
== END 2024-04-14 17:57 | disposition home health service (06) | DRG 689 ==
LOC: ER 08:36 → EDBD 08:36 → TELE 16:56 → TELE-WESTW 23:03 → TELE-EAST 04-09 08:50 → EAST 04-13 23:47 → TELE-EAST 04-14 08:40
PROVIDERS: ADMIT Student in an Organized Health Care Education/Training Program; ATTEND Nurse Practitioner Acute Care
DX: N13.6 Pyonephrosis (principal); R57.1 Hypovolemic shock; R64 Cachexia; Z16.21 Resistance to vancomycin; Z68.1 Body mass index [BMI] 19.9 or less, adult; E87.6 Hypokalemia; E11.65 Type 2 diabetes mellitus with hyperglycemia; E03.9 Hypothyroidism, unspecified; I50.9 Heart failure, unspecified; E11.40 Type 2 diabetes mellitus with diabetic neuropathy, unspecified; F32.A Depression, unspecified; F41.9 Anxiety disorder, unspecified; I11.0 Hypertensive heart disease with heart failure; I25.10 Atherosclerotic heart disease of native coronary artery without angina pectoris; I48.91 Unspecified atrial fibrillation; G89.29 Other chronic pain; R33.9 Retention of urine, unspecified; Z74.01 Bed confinement status; Z88.0 Allergy status to penicillin; Z88.1 Allergy status to other antibiotic agents; Z88.5 Allergy status to narcotic agent; Z90.49 Acquired absence of other specified parts of digestive tract; Z95.1 Presence of aortocoronary bypass graft; Z79.4 Long term (current) use of insulin; Z79.84 Long term (current) use of oral hypoglycemic drugs; Z86.718 Personal history of other venous thrombosis and embolism; Z79.899 Other long term (current) drug therapy; Z82.49 Family history of ischemic heart disease and other diseases of the circulatory system; Z83.3 Family history of diabetes mellitus; B95.2 Enterococcus as the cause of diseases classified elsewhere
CPT/HCPCS: 36415; 71045; 72193; 74177; 74430; 80048; 80053; 81001; 82962; 83036; 83605; 84484; 85025; 85652; 86141; 87040; 87086; 87088; 87186; 93005; 96361; 96365; 96375; 97110; 97163; 97530; 99291; G0378; J1815; J2405; J3490; J7060